=== PATIENT | female | born 1955 | race Caucasian/White ===

== ENCOUNTER 2019-04-11 | Day surgery (SDC) | payer MEDICARE ==
[~2019-04-11] MED LIST: BACLOFEN20 MG PO; CALCIUM500 M2 PO; COCONUT OIL O1000 MG PO; COQ-10100 M1 PO; DICLOFENAC75 MG PO; FEOSOL65 MG PO; LORTAB 7.5-3251 TAB PO; LYRICA150 MG PO; METFORMIN HCL1000 M1 PO; OXYBUTYNIN5 M1 PO; PROTONIX40 M2 PO; SIMVASTATIN40 MG PO; VITAMIN C1000 MG PO; VITAMIN D31000 UNI1 PO; ZESTRIL10 M1 PO; ZOFRAN ODT4 MG PO; [UNRECOGNIZED DRUG - OTHER] PO
[2019-04-11] MEDS ORDERED: D31000 UNIT PO (07:45)
[2019-04-11] MEDS ORDERED: VITAMIN C500 MG PO (07:45)
[2019-04-11] MEDS ORDERED: B-COMPL12 PO (07:46)
[2019-04-11] MEDS ORDERED: POTASSIUM99 MG PO (07:46)
[2019-04-11] MEDS ORDERED: FISH OIL1000 MG PO (07:47)
[2019-04-11] MEDS ORDERED: CALCIUM600 MG PO (07:47)
[2019-04-11] MEDS ORDERED: COCONUT OIL O1000 MG PO (07:47)
[2019-04-11] MEDS ORDERED: IRON45 MG PO (07:48)
[2019-08-28] MEDS ORDERED: BACLOFEN20 MG PO (13:26)
== END 2019-04-11 09:16 | disposition home or self-care (01) ==
DX: M12.9 Arthropathy, unspecified (principal); M54.5 Low back pain; M46.1 Sacroiliitis, not elsewhere classified

== ENCOUNTER 2019-04-25 | Day surgery (SDC) | payer MEDICARE ==
[~2019-04-25] MED LIST changes: +B-COMPL12 PO; +CALCIUM600 MG PO; +D31000 UNIT PO; +FISH OIL1000 MG PO; +IRON45 MG PO; +POTASSIUM99 MG PO; +VITAMIN C500 MG PO
[2019-08-28] MEDS ORDERED: BACLOFEN20 MG PO (13:26)
== END 2019-04-25 09:24 | disposition home or self-care (01) ==
DX: M51.36 Other intervertebral disc degeneration, lumbar region (principal); M54.16 Radiculopathy, lumbar region
CPT/HCPCS: Q9967

== ENCOUNTER 2019-05-09 | Day surgery (SDC) | payer MEDICARE ==
[2019-08-28] MEDS ORDERED: BACLOFEN20 MG PO (13:26)
== END 2019-05-09 06:48 | disposition home or self-care (01) ==
DX: M51.36 Other intervertebral disc degeneration, lumbar region (principal); M54.16 Radiculopathy, lumbar region; Z53.9 Procedure and treatment not carried out, unspecified reason

== ENCOUNTER 2019-05-23 | Day surgery (SDC) | payer MEDICARE ==
[2019-05-23] MEDS ORDERED: [UNRECOGNIZED DRUG - OTHER] PO (06:45)
[2019-08-28] MEDS ORDERED: BACLOFEN20 MG PO (13:26)
== END 2019-05-23 08:35 | disposition home or self-care (01) ==
DX: M46.1 Sacroiliitis, not elsewhere classified (principal)